=== PATIENT | male | born 1960 | race Caucasian/White ===

== ENCOUNTER → 2018-12-07 | Outpatient (CLI) | payer BC ==
--- NOTE | 2018-12-07 14:21 | PCVCIMAG ---
APPROVED REPORT Indications Stenosis Risk Factors Hypertension: Hyperlipidemia Doppler Spectral Velocity Analysis PSV / EDVPSV / EDV ECA (R) 86 / 10 cm/sECA (L) 114 / 11 cm/s dICA (R) 60 / 23 cm/sdICA (L) 79 / 26 cm/s Kimberli (R) 66 / 27 cm/smICA (L) 95 / 39 cm/s pICA (R) 61 / 19 cm/spICA (L) 69 / 13 cm/s Bulb (R) 57 / 16 cm/sBulb (L) 65 / 14 cm/s dCCA (R) 78 / 18 cm/sdCCA (L) 93 / 20 cm/s mCCA (R) 91 / 17 cm/smCCA (L) 106 / 26 cm/s Vert (R) 46 / 14 cm/sVert (L) 44 / 18 cm/s ICA/CCA 0.85ICA/CCA 1.02 Basic Measurements Blood Pressure: Pulses: Right Left RightLeft Brachial(Sitting) 132/07hlFl969/80mmHgTemporal Real Time B-Mode Imaging Vert. (R)AntegradeVert. (L)Antegrade Findings The right carotid bulb has minimal plaque. The right proximal internal carotid artery shows no significant stenosis. The right common carotid artery shows no significant stenosis. The right external carotid artery shows no significant stenosis. The left carotid bulb has mild plaque. The left proximal internal carotid artery shows no significant stenosis. The left common carotid artery shows no significant stenosis. The left external carotid artery shows no significant stenosis. Conclusion 1. No significant stenosis involving either carotid artery. 2. Antegrade vertebral flow.
--- NOTE | 2018-12-07 17:33 | PCVCIMAG ---
APPROVED REPORT Study performed: 12/07/2018 15:18:02 Exam: Stress Echocardiogram Indication: Dyspnea Patient Location: Echo lab Stress Nurse: Kimberly Xiong RN Room #: 2 Status: routine Ht: 5 ft 9 in HR: 68 bpm BP: 132/80 mmHg Rhythm: NSR Medical History Medical History: HTN, ALONSO, Elevated cor ca score Cardiac Risk Factors: HTN, Hyperlipidemia Previous Cardiac Procedures: none Pretest Chest Pain Characteristics: No chest pain Exercise History: Physically active Procedure The patient underwent an Exercise Stress Test using the Melvin Protocol. Blood pressure, heart rate, and EKG were monitored. An Echocardiogram was performed by optical engineering technician in four stages in quad fashion. At peak stress, four selected images were obtained and placed side by side with resting images for comparison. Stress Test Details Stress Test: Exercise stress testing was performed using a Melvin protocol. HR Resting HR: 68 bpmMax Heart Rate (APMHR): 160 bpm Max HR Achieved: 168 bpmTarget HR (85% APMHR): 136 bpm % of APMHR: 105 Recovery HR: 90 bpm HR response to stress: Normal HR response to stress BP Resting BP: 132/80 mmHg Max BP: 178/82 mmHg Recovery BP: 152/78 mmHg BP response to stress: Normal blood pressure response to stress. ECG Resting ECG: Sinus Rhythm Stress ECG: Sinus Rhythm, NSSTT changes ST Change: Non-ischemic Maximum ST Deviation: -1.0 mm Arrhythmia: Rare PVCs Recovery ECG: Sinus Rhythm, NSSTT changes Recovery ST Change: Non-ischemic Recovery ST Deviation: -0.8 mm Recovery Arrhythmia: None Clinical Reason for Termination: Maximal effort Stress Symptoms: fatigue Exercise duration: 12 min 00 sec Highest Stage Achieved: Stage 4: 4.2 mph at 16% grade. Exercise capacity: 13.7 METs Overall Exercise Capacity for Age: Good Scale: Active Angina Score: None No complications. Stress ECG Conclusion The patient exercised according to the MELVIN protocol for 12:00 mins; achieving a work level of 13.7 METS. The resting heart rate of 68 bpm karri to a maximum heart rate of 168 bpm. This value represents 105% of the maximal, age-predicted heart rate. The resting blood pressure of 132/80 mmHg, karri to a maximum blood pressure of 178/82 mmHg. The exercise test was stopped due to fatigue . Glynn Treadmill Score is 17.0 which is Low risk. Pre-Stress Echo The resting Echocardiogram showed normal left ventricular contractility with an estimated Ejection Fraction of about 55-60%. Normal wall motion in all segments on baseline images. Post-Stress Echo The stress Echocardiogram showed normal left ventricular contractility with an estimated Ejection Fraction of about 65-70%. Normal augmentation of wall motion in all segments on post stress images. Clinical No clinical or ECG evidence for ischemia. Conclusion Clinical Response: Non-ischemic Exercise Capacity: Superior Stress ECG Response: Non-ischemic Stress Echo Images: Non-ischemic No clinical, EKG or echocardiographic evidence for ischemia. No echocardiographic evidence for exercise induced ischemia. Normal stress echocardiogram with maximal exercise stress. No prior study available for comparison. <Conclusion> No clinical, EKG or echocardiographic evidence for ischemia. No echocardiographic evidence for exercise induced ischemia. Normal stress echocardiogram with maximal exercise stress.
== END | disposition home or self-care (01) ==
LOC: PCVCIMAG 13:39
PROVIDERS: ATTEND Internal Medicine Cardiovascular Disease
DX: I65.21 Occlusion and stenosis of right carotid artery (principal); E78.5 Hyperlipidemia, unspecified; I10 Essential (primary) hypertension; E78.00 Pure hypercholesterolemia, unspecified; R93.1 Abnormal findings on diagnostic imaging of heart and coronary circulation; G47.33 Obstructive sleep apnea (adult) (pediatric); R06.09 Other forms of dyspnea; R06.00 Dyspnea, unspecified
CPT/HCPCS: 93325; 93351; 93880